=== PATIENT | female | born 1980 | race Caucasian/White ===

== ENCOUNTER 2018-03-14 10:49 | Emergency (ER) | payer BC ==
--- NOTE | 2018-03-14 11:38 | EDM.PDOC ---
ED HPI GENERAL MEDICAL PROBLEM - General Chief Complaint: Lower Extremity Injury/Pain Stated Complaint: PAIN IN LEFT LEG Time Seen by Provider: 03/14/18 11:32 Source of Information: Reports: Patient History Limitations: Reports: No Limitations - History of Present Illness INITIAL COMMENTS - FREE TEXT/NARRATIVE: HISTORY AND PHYSICAL: 37-year-old female presenting with left lower lobe leg pain History of Present Illness: []She had been riding in a car for last 3 days started having pain a day ago the left lower leg Review of Systems: As per history of present illness and below otherwise all systems reviewed and negative. Past medical history: As per history of present illness and as reviewed below otherwise noncontributory. Surgical history: As per history of present illness and as reviewed below otherwise noncontributory. Social history: No reported history of drug or alcohol abuse. Family history: As per history of present illness and as reviewed below otherwise noncontributory. Physical exam: Oriented female answering questions appropriately in full sentences without any shortness of breath. She is nontoxic in appearance. Vital signs reviewed HEENT: Atraumatic, normocehpalic, pupils reactive, negative for conjunctival pallor or scleral icterus, mucous membranes moist, throat clear, neck supple, nontender, trachea midline. Lungs: Clear to auscultation, breath sounds equal bilaterally, chest non tender. Heart: S1S2, regular, negative for clicks, rubs, or JVD. Abdomen: Soft, nondistended, nontender. Negative for masses or hepatossplenmegaly. Negative for costovertebral tenderness. Pelvis: Stable nontender. Genitourinary: Deferred. Rectal: Deferred Extremities: Atraumatic, negative for cords or calf pain. Neurovascular unremarkable. Neuro: Awake, alert, oriented. Cranial nerves II through XII unremarkable. Cerebellum unremarkable. Motor and sensory unremarkable throughout. Exam nonfocal. Diagnostics: []Doppler lower leg Therapeutics: [] Impression: []DVT Plan: []Discharge Several total 20mg bid for 21 days Keep your appointment with primary care on this March 18 Return to the emergency department as directed as discussed Definitive disposition and diagnosis as appropriate pending reevaluation and review of above. Onset: Gradual Duration: Day(s): Left Lower Leg Pain Score (Numeric/FACES): 6 - Related Data Allergies Allergy/AdvReac Type Severity Reaction Status Date / Time shellfish derived Allergy Vomiting Verified 03/14/18 11:30 Home Meds: Home Meds Rivaroxaban [Xarelto] 15 mg PO BID #42 tablet 03/14/18 [Rx] Past Medical History Cardiovascular History: Reports: Hypertension - Infectious Disease History Infectious Disease History: Reports: Chicken Pox - Past Surgical History Female Surgical History: Reports: Section Social & Family History - Family History Family Medical History: Noncontributory - Tobacco Use Smoking Status *Q: Former Smoker Used Tobacco, but Quit: Yes Month/Year Tobacco Last Used: 02/2018 - Caffeine Use Caffeine Use: Reports: Coffee - Recreational Drug Use Recreational Drug Use: No Review of Systems - Review of Systems Review Of Systems: ROS reveals no pertinent complaints other than HPI. ED EXAM, GENERAL - Physical Exam Exam: See Below (The dictation) Course - Vital Signs Last Recorded V/S: Last Vital Signs Temp 36.7 C 03/14/18 11:27 Pulse 91 03/14/18 11:27 Resp 20 03/14/18 11:27 BP 144/98 H 03/14/18 11:27 Pulse Ox 96 03/14/18 11:27 - Orders/Labs/Meds Orders: Active Orders 24 hr Category Date Time Status Venous Doppler Lwr Ext Lt [US] Stat Exams 03/14/18 11:38 Ordered Departure - Departure Time of Disposition: 12:20 Disposition: Home, Self-Care 01 Condition: Good Clinical Impression: Left leg DVT Qualifiers: Affected thrombotic vein of extremity: unspecified vein of extremity Chronicity : acute Qualified Code(s): I82.402 - Acute embolism and thrombosis of unspecified deep veins of left lower extremity - Discharge Information *PRESCRIPTION DRUG MONITORING PROGRAM REVIEWED*: Not Applicable *COPY OF PRESCRIPTION DRUG MONITORING REPORT IN PATIENT LINDA: Not Applicable Prescriptions: Rivaroxaban [Xarelto] 15 mg PO BID #42 tablet Referrals: PCP,None [Primary Care Provider] - Forms: ED Department Discharge Additional Instructions: The following information is given to patients seen in the emergency department who are being discharged to home. This information is to outline your options for follow-up care. We provide all patients seen in our emergency department with a follow-up referral. The need for follow-up, as well as the timing and circumstances, are variable depending upon the specifics of your emergency department visit. If you don't have a primary care physician on staff, we will provide you with a referral. We always advise you to contact your personal physician following an emergency department visit to inform them of the circumstance of the visit and for follow-up with them and/or the need for any referrals to a consulting specialist. The emergency department will also refer you to a specialist when appropriate. This referral assures that you have the opportunity for followup care with a specialist. All of these measure are taken in an effort to provide you with optimal care, which includes your followup. Under all circumstances we always encourage you to contact your private physician who remains a resource for coordinating your care. When calling for followup care, please make the office aware that this follow-up is from your recent emergency room visit. If for any reason you are refused follow-up, please contact the [facility] emergency department at and asked to speak to the emergency department charge nurse. Discharge Several total 20mg bid for 21 days Keep your appointment with primary care on this March 18 Return to the emergency department as directed as discussed Definitive disposition and diagnosis as appropriate pending reevaluation and review of above. - My Orders Last 24 Hours: My Active Orders 03/14/18 11:38 Venous Doppler Lwr Ext Lt [US] Stat - Assessment/Plan Last 24 Hours: My Active Orders 03/14/18 11:38 Venous Doppler Lwr Ext Lt [US] Stat
--- NOTE | 2018-03-14 12:52 | US ---
ULTRASOUND EXAMINATION OF the left lower extremity WITH DOPPLER HISTORY: Pain FINDINGS: Examination of the left leg was performed from the groin to the calf region. There is a noncompressible filling defect noted within the left popliteal vein without notable internal color Doppler flow. There is flow and compressibility noted within the common femoral and femoral vein. Flow is noted within the left anterior tibial vein. IMPRESSION: 1. Noncompressible filling defect noted within the left popliteal vein consistent with a DVT.
== END 2018-03-14 12:32 | disposition home or self-care (01) ==
LOC: MW.ED 10:49
DX: I82.432 Acute embolism and thrombosis of left popliteal vein (principal); I10 Essential (primary) hypertension; Z91.013 Allergy to seafood; Z87.891 Personal history of nicotine dependence
CPT/HCPCS: 93971-26-LT; 93971-LT; 99283-25